=== PATIENT | female | born 1980 | race African-American/Black ===

== ENCOUNTER 2016-12-17 02:18 | Emergency (ER) | payer OTHER ==
[2016-12-17 02:42] VITALS: BP 124/89; PULSE 92; TEMP 98.1; BMI 31.9
[2016-12-17] MEDS ORDERED: SULFAMETHOXAZOLE/TRIMETHOPRIM 800MG/160MG D.S. TABLET PO ONE (02:45)
[2016-12-17] MEDS ORDERED: IBUPROFEN 400 MG TABLET (FP) PO ONE ×2 (02:46→02:56)
--- NOTE | 2016-12-17 02:51 | PDOC ---
History of Present Illness - General History Source: Patient <Cade Beltran - Last Filed: 12/17/16 02:45> - General History Source: Patient Exam Limitations: No Limitations - History of Present Illness Initial Comments: 12/17/16 02:56 The patient is a 36 year old female with no significant past medical history who presents to the ED with 1 day of a redness and pain to the right third digit. Patient reports the redness extends around the finger from the PIP joint to the DIP joint. She states the redness was a result of her biting at the skin due to a bad nervous habit. Denies any trauma to the area. The patient denies fever, chills, cough, SOB, chest pain, and palpitations. The patient denies abdominal pain, nausea, vomiting, and diarrhea. Allergies: NKDA Social History: No alcohol, tobacco, or drug use reported. Past Surgical History: None reported PCP: Dr. Leroy Mejias <Amena Dangelo - Last Filed: 12/17/16 02:57> - General Chief Complaint: Edema Stated Complaint: INJURY TO RIGHT MIDDLE FINGER Time Seen by Provider: 12/17/16 02:45 Past History - Past Medical History Other medical history: denies - Psycho/Social/Smoking Cessation Hx Suicidal Ideation: No Smoking History: Unknown if ever smoked <Cade Beltran - Last Filed: 12/17/16 02:45> <Amena Dangelo - Last Filed: 12/17/16 02:57> - Past Medical History Allergies/Adverse Reactions: Allergies Allergy/AdvReac Type Severity Reaction Status Date / Time No Known Allergies Allergy Verified 12/17/16 02:40 Home Medications: Ambulatory Orders Ibuprofen 800 mg PO TID #30 tablet 12/17/16 Sulfamethoxazole/Trimethoprim [Bactrim *Ds*] 1 tab PO BID #20 tablet 12/17/16 Review of Systems - Review of Systems Able to Perform ROS?: Yes Comments:: 12/17/16 02:56 CONSTITUTIONAL: Absent: fever, no chills, no fatigue EYES: Absent: visual changes ENT: Absent: ear pain, no sore throat CARDIOVASCULAR: Absent: chest pain, no palpitations RESPIRATORY: Absent: cough, no SOB GI: Absent: abdominal pain, no nausea, no vomiting, no constipation, no diarrhea GENITOURINARY: Absent: dysuria, no frequency, no hematuria MUSKULOSKELETAL: Absent: back pain, no arthralgia, no myalgia SKIN: +redness and pain to the right third digit NEURO: Absent: headache <Amena Dangelo - Last Filed: 12/17/16 02:57> *Physical Exam - Vital Signs Last Vital Signs Temp Pulse Resp BP Pulse Ox 98.1 F 92 H 18 124/89 100 12/17/16 02:40 12/17/16 02:40 12/17/16 02:40 12/17/16 02:40 12/17/16 02:40 <Cade Beltran - Last Filed: 12/17/16 02:45> - Vital Signs Last Vital Signs Temp Pulse Resp BP Pulse Ox 98.1 F 92 H 18 124/89 100 12/17/16 02:40 12/17/16 02:40 12/17/16 02:40 12/17/16 02:40 12/17/16 02:40 - Physical Exam Comments: 12/17/16 02:56 GENERAL: Well-appearing, well-nourished. No apparent distress. HEENT: Normocephalic, atraumatic. PERRL, EOM intact. CARDIOVASCULAR: Normal S1, S2. Regular rate and rhythm. PULMONARY: Clear to auscultation bilaterally. ABDOMEN: Soft, non-distended, non-tender. EXTREMITIES: Normal ROM in all four extremities. No gross deformities. SKIN: Warm, dry. Swelling and erythema surrounding the entire right third digit, no open wounds or lesions. NEUROLOGICAL: No focal neurological deficits. <Amena Dangelo - Last Filed: 12/17/16 02:57> Medical Decision Making - Medical Decision Making 12/17/16 02:51 Dr. Beltran: The scribe's documentation has been prepared under my direction and personally reviewed by me in its entirery. I confirm that the note above accurately reflects all work, treatment, procedures, and medical decision making performed by me. <Cade Beltran - Last Filed: 12/17/16 02:45> *DC/Admit/Observation/Transfer - Discharge Dispostion Admit: No <Cade Beltran - Last Filed: 12/17/16 02:45> - Attestations Scribe Attestion: 12/17/16 02:57 Documentation prepared by Amena Dangelo, acting as medical examiner for Cade Beltran MD <Amena Dangelo - Last Filed: 12/17/16 02:57> Diagnosis at time of Disposition: Cellulitis of right middle finger - Prescriptions Prescriptions: Sulfamethoxazole/Trimethoprim [Bactrim *Ds*] 1 tab PO BID #20 tablet Ibuprofen 800 mg PO TID #30 tablet - Referrals Referrals: Leroy Mejias MD [Primary Care Provider] - - Patient Instructions Printed Discharge Instructions: DI for Cellulitis -- Adult Additional Instructions: take medication as directed. Avoid bitting at the skin of your finger until completely healed.
[2016-12-17] MEDS ORDERED: SULFAMETHOXAZOLE/TRIMETHOPRIM 800MG/160MG D.S. TABLET ONE (02:56)
== END 2016-12-17 03:05 | disposition home or self-care (01) ==
LOC: JER 02:18
DX: L03.011 Cellulitis of right finger (principal); F98.8 Other specified behavioral and emotional disorders with onset usually occurring in childhood and adolescence
CPT/HCPCS: 99281-25

== ENCOUNTER 2019-09-01 20:02 | Emergency (ER) | payer OTHER ==
[2019-09-01 20:06] VITALS: BP 162/89; PULSE 86; TEMP 98.3; BMI 34.4
--- NOTE | 2019-09-01 20:56 | PDOC ---
History of Present Illness - General Chief Complaint: Eye Problem Stated Complaint: PINK EYE Time Seen by Provider: 09/01/19 20:08 History Source: Patient Exam Limitations: No Limitations - History of Present Illness Initial Comments: 09/01/19 20:51 39-year-old female denies past medical history presents complaining of left eye redness x3 days. Denies trauma, eye pain, eye discharge, blurry vision, recent illness, fever, chills or any other complaints. Wears corrective lenses when needed. ROS: GENERAL/CONSTITUTIONAL: No fever, chills, weakness, dizziness HEAD, EYES, EARS, NOSE AND THROAT: Left eye redness, no changes in vision, No ear pain or discharge, No sore throat CARDIOVASCULAR: No chest pain RESPIRATORY: No shortness of breath or cough GASTROINTESTINAL: No pain, nausea, vomiting, diarrhea or constipation GENITOURINARY: No dysuria MUSCULOSKELETAL: No neck or back pain SKIN: No rash NEUROLOGIC: No headache, vertigo, loss of consciousness, or loss of sensation PE: GENERAL: well-appearing, NAD HEAD: NCAT EYES: Visual acuity OS 20/25, OD 20/30, minimal erythema to lateral conjunctiva of left eye, no drainage noted, normal eyelids Pupils equal, round and reactive to light ENT: pharynx: no erythema, no exudate, uvula midline NECK: supple CHEST: nontender RESP: clear, no w/r/r CARDIO: rrr, no m/g/r ABD: +BS, soft, nontender, non distended BACK: no midline spinal ttp, no CVAT EXTREMITIES: Normal range of motion, no edema NEUROLOGICAL: Normal speech, normal gait SKIN: Warm, Dry Is this a multiple visit Asthma Patient?: No Past History - Past Medical History Allergies/Adverse Reactions: Allergies Allergy/AdvReac Type Severity Reaction Status Date / Time No Known Allergies Allergy Verified 12/17/16 02:40 Home Medications: Ambulatory Orders Ibuprofen 800 mg PO TID #30 tablet 12/17/16 Sulfamethoxazole/Trimethoprim [Bactrim *Ds*] 1 tab PO BID #20 tablet 12/17/16 COPD: No - Psycho Social/Smoking Cessation Hx Smoking History: Never smoked *Physical Exam - Vital Signs Last Vital Signs Temp Pulse Resp BP Pulse Ox 98.3 F 86 18 162/89 97 09/01/19 20:04 09/01/19 20:04 09/01/19 20:04 09/01/19 20:04 09/01/19 20:04 Medical Decision Making - Medical Decision Making 09/01/19 20:54 39-year-old female presents with left eye redness x3 days. Physical exam consistent with left subconjunctival hemorrhage. Informed patient that subconjunctival hemorrhage is self-limiting BP in triage 162/89 Repeat BP 144/102 Advised patient follow-up with PMD next week Return precautions discussed Discharge - Discharge Information Problems reviewed: Yes Clinical Impression/Diagnosis: Subconjunctival hemorrhage of left eye Condition: Stable Disposition: HOME - Follow up/Referral Referrals: Leroy Mejias MD [Primary Care Provider] - - Patient Discharge Instructions Additional Instructions: Please follow-up with your primary care doctor regarding your blood pressure. Today your blood pressure in triage was 162/89, then repeat blood pressure was 144/102. Return to the ED if chest pain, headache, weakness, difficulty speaking, shortness of breath or any worsening symptoms. You have a subconjunctival hemorrhage which should resolve on its own in a few days. If you have eye pain, fever, eye drainage, eyelid swelling, changes in vision or worsening symptoms return to the ED. - Post Discharge Activity
== END 2019-09-01 21:02 | disposition home or self-care (01) ==
LOC: JERFT 20:02
DX: H11.32 Conjunctival hemorrhage, left eye (principal)
CPT/HCPCS: 99281-25

== ENCOUNTER 2023-05-07 03:19 | Emergency (ER) | payer OTHER ==
[2023-05-07 03:30] VITALS: BMI 34.5
[2023-05-07 05:37] LABS: INR 1.06 (0.83-1.09); PROTHROMBIN TIME (PATIENT) 12.3 SEC (9.7-13.0)
[2023-05-07 05:40] LABS: ACTIVATED PTT 25.9 SECONDS (25.2-36.5); POTASSIUM 3.9 mmol/L (3.5-5.1)
[2023-05-07 05:42] LABS: CALCIUM 8.4 mg/dL (8.5-10.1)
[2023-05-07 05:45] LABS: ALBUMIN 3.4 g/dl (3.4-5.0)
[2023-05-07 05:46] LABS: CREATININE 0.7 mg/dL (0.55-1.3)
[2023-05-07 05:47] LABS: BILIRUBIN,TOTAL 0.1 mg/dL (0.2-1); TOT PROT 7.2 g/dl (6.4-8.2)
[2023-05-07 06:16] LABS: BASO % 0.5 % (0-2.0); HEMATOCRIT 37.3 % (32.4-45.2); HEMOGLOBIN 11.6 GM/dL (10.7-15.3); LYMPH % 41.1 % (8-40); MCH 23.9 pg (25.7-33.7); MCHC 31.2 g/dl (32.0-36.0); MEAN CELL VOLUME 76.7 fl (80-96); MEAN PLT VOLUME 11.2 fl (7.5-11.1); MONO % 6.5 % (3.8-10.2); NEUT % 46.9 % (42.8-82.8); PLATELET COUNT 224 10^3/uL (134-434); RBC 4.86 M/mm3 (3.60-5.2); RDW 15.7 % (11.6-15.6); WHITE BLOOD COUNT 4.1 K/mm3 (4.0-10.0)
[2023-05-07 06:19] VITALS: BP 109/78; PULSE 82; RESP 18; TEMP 98.4
== END 2023-05-07 06:56 | disposition home or self-care (01) ==
LOC: JER 03:19
DX: R05.9 Cough, unspecified (principal)
CPT/HCPCS: 36415; 71045-TC-FY; 80053; 83690; 84484; 85025; 85610; 85730; 93005; 93010; 99285-25